=== PATIENT | female | born 1945 | race Native Hawaiian/Other Pacific Islander ===

== ENCOUNTER 2016-12-17 14:27 | Outpatient (CLI) | payer OTHER ==
[~2016-12-17 14:27] MED LIST: AMOX500C85 PO; ASPI325T40 PO; CALTRATE 601 OR; DIOVAN HCT PO; LEVAQUIN500 MG OR; LEVO0.0218 PO; LIPITOR10 MG PO; METF500T PO; METO50TA63 PO
[2016-12-17 14:50] LABS: PLATELET COUNT 228 K/uL (152-353)
[2016-12-17 15:12] LABS: POTASSIUM 3.9 mmol/L (3.6-5.2); SODIUM 134 mmol/L (136-145)
== END 2016-12-17 19:30 | disposition home or self-care (01) ==
LOC: LAB 14:27
PROVIDERS: Nurse Practitioner Family
DX: Z00.00 Encounter for general adult medical examination without abnormal findings (principal); I10 Essential (primary) hypertension; E78.4 Other hyperlipidemia; E11.9 Type 2 diabetes mellitus without complications; R53.83 Other fatigue; R53.81 Other malaise; E55.9 Vitamin D deficiency, unspecified; Z79.899 Other long term (current) drug therapy; Z51.81 Encounter for therapeutic drug level monitoring
CPT/HCPCS: 80053; 80061; 82306; 82607; 83036; 84436; 84443; 85027

== ENCOUNTER 2017-07-09 13:45 | Outpatient (CLI) | payer OTHER ==
[2017-07-09 13:58] LABS: PLATELET COUNT 240 K/uL (152-353)
[2017-07-09 14:39] LABS: POTASSIUM 4.8 mmol/L (3.6-5.2)
== END 2017-07-09 19:09 | disposition home or self-care (01) ==
LOC: LAB 13:45
PROVIDERS: Nurse Practitioner Family
DX: I10 Essential (primary) hypertension (principal); Z79.899 Other long term (current) drug therapy; Z51.81 Encounter for therapeutic drug level monitoring; E78.4 Other hyperlipidemia; R53.83 Other fatigue; N39.0 Urinary tract infection, site not specified; E11.9 Type 2 diabetes mellitus without complications
CPT/HCPCS: 80053; 80061; 83036; 84436; 84443; 85027

== ENCOUNTER 2018-02-26 09:25 | Outpatient (CLI) | payer OTHER | END 2018-02-26 20:14 | disposition home or self-care (01) | LOC: CT 09:25 | DX: R10.84 Generalized abdominal pain (principal); N39.0 Urinary tract infection, site not specified ==